=== PATIENT | male | born 1990 | race Hispanic/Latino ===

== ENCOUNTER 2017-03-12 19:51 | Emergency (ER) | payer OTHER ==
[~2017-03-12] VITALS: Ht 167.6 cm; Wt 136.1 kg
--- NOTE | 2017-03-12 23:03 | ED UPPER/LOWER EXTREMITY COMPL ---
History of Present Illness General Chief Complaint: Lower Extremity Injury Stated Complaint: RIGHT CALF PAIN Source: patient Exam Limitations: no limitations Vital Signs & Intake/Output Vital Signs & Intake/Output Vital Signs Date Time Temp Pulse Resp B/P B/P Pulse O2 O2 Flow FiO2 Mean Ox Delivery Rate 03/12 2325 98.0 89 18 124/74 97 Room Air Room Air 03/12 2001 98.2 106 16 129/76 95 Room Air Allergies Coded Allergies: No Known Allergies (02/19/16) Triage Note: RECEIVED 27 YO MALE C/O RIGHT CALF PAIN X 3 HOURS. PT WAS AT THE GYM DOING SUICIDE RUNS, FAST SPRINTING BACK AND FORTH, AND HE FELT A POP IN HIS RIGHT CALF. PAIN WITH WEIGHT BEARING. Triage Nurses Notes Reviewed? yes Onset: Abrupt Duration: constant Timing: single episode today Method of Injury: sports injury HPI: Patient is a 27-year-old male who states last 30 days he began exercising more regular basis for weight loss where in the past 5 days he noticed a gradual onset of right calf pain however today upon performing sprints he notes acute onset of sharp STABBING SEVERE right-sided calf pain. Patient took naproxen prior to arrival while relief patient rests is no pain however upon ambulation it is made worse. (SHAY LOVETT) Past History Travel History Traveled to [place] past 21 day No Medical History Any Pertinent Medical History? none Neurological: NONE EENT: NONE Cardiovascular: NONE Respiratory: NONE Gastrointestinal: NONE Hepatic: NONE Renal: NONE Musculoskeletal: NONE Psychiatric: NONE Endocrine: NONE Blood Disorders: NONE Cancer(s): NONE Surgical History Surgical History: cholecystectomy Psychosocial History What is your primary language Guinean Tobacco Use: Never used Family History Hx Contributory? No (SHAY LOVETT) Review of Systems Review of Systems Constitutional: Reports: no symptoms. EENTM: Reports: no symptoms. Respiratory: Reports: no symptoms. Cardiovascular: Reports: no symptoms. Gastrointestinal/Abdominal: Reports: no symptoms. Genitourinary: Reports: no symptoms. Musculoskeletal: Reports: see HPI, muscle pain, muscle stiffness. Skin: Reports: no symptoms. Neurological/Psychological: Reports: no symptoms. Hematologic/Endocrine: Reports: no symptoms. Immunological: Reports: no symptoms. All Other Systems: Reviewed and Negative (SHAY LOVETT) Physical Exam Physical Exam General Appearance: no apparent distress, alert Neurologic/Tendon: normal sensation, normal motor functions, normal tendon functions, responds to pain, no evidence tendon injury, no pulse deficit Skin: intact, normal color, warm/dry Comments: Well-developed well-nourished no apparent distress. HEENT: Atraumatic, extraocular motion intact Neck: Supple, no lymphadenopathy Back: Nontender Respiratory: No respiratory distress Extremities: Right knee nontender full active range of motion Right ankle nontender full active range of motion Right lower extremity noted moderate point tenderness to medial gastrocnemius muscle belly no bulging mass NO Achilles tendon deficit or bulging mass Resisted range of motion noted with plantar flexion dorsiflexion reproduced pain 5 out of 5 strength Right foot normal inspection nontender pedal pulse +2 right lower extremity dermatomes intact Neuro: Alert and oriented x3 Psych: Mood affect normal, normal memory normal judgment. (SHAY LOVETT) Progress Differential Diagnosis: arterial insufficiency, compartment syndrome, contusion, dislocation, DVT, fracture, gout, septic arthritis, sprain, tendon injury, ACHILLES TENDON RUPTURE Plan of Care: Orders Procedure Date/time Status Durable Medical Equipment 03/12 2302 Active On examination there is no concerns of Achilles tendon rupture [place] there is concern of gastrocnemius muscle strain. Patient was given crutches for weightbearing as tolerated status. (SHAY LOVETT) Departure Departure Disposition: HOME OR SELF CARE Condition: Stable Clinical Impression Primary Impression: Strain of right gastrocnemius muscle Referrals: PATIENT HAS NO PRIMARY CARE DR (PCP/Family) Additional Instructions: As discussed BEGIN TO ice the area directly 20 minutes every 2 hours. continue [id number] NSAIDs such as naproxen as directed for pain and inflammation. Begin using crutches UNTIL YOU CAN walk without pain. If no better in one week follow-up with your [facility] orthopedic doctor. If symptoms worsen return to the emergency room Departure Forms: Customer Survey General Discharge Information (SHAY LOVETT) PA/HEAD UP OPERATOR HELPER Co-Sign Statement Statement: ED Attending supervision documentation- x I saw and evaluated the patient. I have also reviewed all the pertinent lab results and diagnostic results. I agree with the findings and the plan of care as documented in the PA's/HEAD UP OPERATOR HELPER's documentation. [] I have reviewed the ED Record and agree with the PA's/HEAD UP OPERATOR HELPER's documentation. [] Additions or exceptions (if any) to the PAs/HEAD UP OPERATOR HELPER's note and plan are summarized below: [] (ASHKAN MARI,JULIANNE)
[2017-03-12 23:25] VITALS: BP 124/74
== END 2017-03-12 23:26 ==
LOC: ERH 19:51
DX: S86.811A Strain of other muscle(s) and tendon(s) at lower leg level, right leg, initial encounter (principal); X58.XXXA Exposure to other specified factors, initial encounter; Y92.9 Unspecified place or not applicable; Y93.9 Activity, unspecified